=== PATIENT | male | born 1940 | race Caucasian/White ===

== ENCOUNTER 2016-03-06 07:08 | Inpatient (IN) | payer MEDICARE, OTHER ==
[2016-03-06] MEDS ORDERED: NS 0.9% 1000 ML* 1,000 ML IV ONE (08:25)
[2016-03-06] MEDS ORDERED: HYDROcodone/ACETAMIN 5-325 MG* 1 TAB PO ONE (08:26)
[2016-03-06 08:36] LABS: Hematocrit 24 % (42-52); Hemoglobin 7.3 g/dl (14.0-18.0); Mean Corpuscular HGB Conc 31 g/dl (31-36); Mean Corpuscular Hemoglobin 26 pg (27-31); Mean Corpuscular Volume 85 fL (80-94); Mean Platelet Volume 10 um3 (7.4-10.4); Red Blood Count 2.78 10^6/ul (4.0-5.4); Red Cell Distribution Width 20 % (10.5-15); White Blood Count 7.8 10^3/ul (3.5-10.8)
[2016-03-06 08:48] LABS: ALT 22 U/L (7-52); AST 16 U/L (13-39); Albumin 2.6 g/dL (3.2-5.2); Alkaline Phosphatase 113 U/L (34-104); Anion Gap 7 mmol/L (2-11); BUN/Creatinine Ratio 25.8 (8-20); Blood Urea Nitrogen 76 mg/dL (6-24); CO2 Carbon Dioxide 27 mmol/L (22-32); Chloride 110 mmol/L (101-111); EGFR African American 26.8 (>60); EGFR Non-African American 20.8 (>60); Globulin 4.7 g/dL (2-4); Glucose 484 mg/dL (70-100); Sodium 144 mmol/L (133-145); Total Protein 7.3 g/dL (6.4-8.9)
[2016-03-06 08:50] LABS: Troponin I 0.02 ng/mL (<0.04)
--- NOTE | 2016-03-06 09:16 | RAD ---
INDICATION: Loss of consciousness. History of right frontal mass COMPARISON: CT brain May 03, 2015 MRI brain March 29, 2014 TECHNIQUE: Noncontrast axial source images were acquired from the skull base to the vertex. FINDINGS: Ventricles/sulci: The ventricles and cisterns are unchanged in size and configuration for age. There is no hydrocephalus Brain parenchyma: There is large (4.7 x 4.6 cm) calcified right frontal mass with localized mass effect. This mass extends under the tentorium projecting to the left frontal lobe. This is likely a calcified meningioma. The appearance unchanged. There is no new focal parenchymal finding, evidence of intracranial mass, or intracranial mass effect. Intracranial hemorrhage:None. Extra-axial spaces: There are no abnormal extra axial fluid collections or evidence of extra-axial mass. Calvarium: There is no calvarial fracture or other calvarial abnormality. Scalp: There is no evidence of scalp or extracalvarial soft tissue abnormality. Paranasal sinuses/mastoid: The paranasal sinuses and mastoid air cells are clear. Other: None. IMPRESSION: STABLE CALCIFIED RIGHT FRONTAL MASS LIKELY A MENINGIOMA. NO ACUTE INTRACRANIAL FINDINGS
[2016-03-06] MEDS ORDERED: Insulin REGULAR(*) 1 UNITS UNIT SUBCUT ONE (09:35)
--- NOTE | 2016-03-06 09:40 | RAD ---
Indication: Back pain post fall. Comparison: November 23, 2015 CT. Technique: AP and lateral views thoracic spine. Report: Severe T9 and moderate T10 osteoporotic compression fractures are unchanged compared with the November 20, 2015 CT. No new thoracic spine fracture evident. Mildly increased thoracic kyphosis secondary to the T9 and T10 fractures. Unremarkable paraspinal soft tissue contours. Catheter from RIGHT chest port at level of superior vena cava RIGHT atrial junction. RIGHT upper quadrant surgical clips. IMPRESSION: Unchanged T9 and T10 osteoporotic compression fractures. No new thoracic spine fracture evident.
--- NOTE | 2016-03-06 09:43 | RAD ---
Indication: Back pain. Comparison: December 28, 2015 CT. Technique: AP, lateral, and oblique views lumbar sacral spine. Report: Normal alignment. Negative for vertebral body or posterior element fracture. Multilevel minimal vertebral endplate osteophytosis. No significant disc space narrowing. Mild facet joint osteoarthritis. No suspicious focal osseous lesions unremarkable paraspinal soft tissue contours. Innumerable RIGHT upper quadrant surgical clips reflecting previous Whipple procedure. IVC filter in place.. IMPRESSION: No traumatic injury of the lumbar sacral spine evident.
--- NOTE | 2016-03-06 09:46 | RAD ---
INDICATION: Fall COMPARISON: Chest x-ray May 31, 2015 TECHNIQUE: An AP portable supine view obtained at 0905 hours is submitted. FINDINGS: Bones/Soft Tissues: There are no acute bony findings. There is a right-sided Qtkabs-s-Eiqh catheter Cardiomediastinal: The cardiomediastinal silhouette is normal. Lungs: There are no infiltrates. The interstitium is mildly prominent which is likely a combination of supine technique and mild expiration. However, early interstitial changes are not excluded. Pleura: There are no pleural effusions. Other: None IMPRESSION: MILD DIFFUSE INTERSTITIAL PROMINENCE (SEE ABOVE).
[2016-03-06 10:28] LABS: Urine Bacteria Absent (Absent); Urine Bilirubin Negative (Negative); Urine Glucose 3+(>=500 mg/dL) (Negative); Urine Nitrite Negative (Negative)
[2016-03-06 10:30] LABS: Alcohol < 10 mg/dL (<10)
[2016-03-06 13:48] LABS: Magnesium 2.8 mg/dL (1.9-2.7)
[2016-03-06] MEDS ORDERED: NS 0.9% 1000 ML* 1,000 ML IV SCH (14:45)
--- NOTE | 2016-03-06 15:30 | ED ---
Brad Morel Soohyun, scribed for Keo Oreilly MD on 03/06/16 at 0828 . Back Pain - HPI Summary HPI Summary: This 76 y/o male presents to ED via ambulance for low back pain secondary to a fall out of bed this morning. Pt was found by , who called the ambulance. Pt reports LOC at time of initial evaluation. Temperature of 100.2 F is noted at time of triage. PMHx includes CAD, CO, pancreatic CA, and left total hip replacement on 02/28/2013. Pt appears disoriented at the time of initial evaluation, and currently denying his PMHx of pancreatic CA. - History of Current Complaint Chief Complaint: EDBackInjuryPain Stated Complaint: BACK PAIN Time Seen by Provider: 03/06/16 07:21 Hx Obtained From: Patient, Medical Records Onset/Duration: Sudden Onset Onset/Duration: Started Hours Ago Timing: Constant Back Pain Location: Is Discrete @ - low back pain Severity Initially: Moderate Severity Currently: Moderate Pain Intensity: 5 Pain Scale Used: 0-10 Numeric Character: Dull Aggravating Symptom(s): Movement Alleviating Symptom(s): Rest Associated Signs And Symptoms: Positive: Fever, Abdominal Pain - chronic secondary to pancreatic CA. - Allergies/Home Medications Allergies/Adverse Reactions: Allergies Allergy/AdvReac Type Severity Reaction Status Date / Time No Known Allergies Allergy Verified 03/06/16 07:46 Home Medications: Home Medications DOXYcycline CAP(*) [DOXYcycline 100MG CAP(*)] 100 mg PO BID 03/06/16 [History Confirmed 03/06/16] PMH/Surg Hx/FS Hx/Imm Hx Endocrine/Hematology History: Reports: Hx Anticoagulant Therapy, Hx Blood Transfusions, Hx Diabetes, Hx Anemia Denies: Hx Systemic Lupus Erythematosus Cardiovascular History: Reports: Hx Angina, Hx Cardiac Arrest, Hx Coronary Artery Disease, Hx Deep Vein Thrombosis, Hx Embolism, Hx Hypercholesterolemia, Hx Hypertension, Other Cardiovascular Problems/Disorders - PORT, PE Denies: Hx Congestive Heart Failure, Hx Pacemaker/ICD Respiratory History: Reports: Hx Pulmonary Embolism, Other Respiratory Problems/ Disorders - TB EXPOSURE W/NEG PPD Denies: Hx Asthma, Hx Chronic Obstructive Pulmonary Disease (COPD) GI History: Reports: Hx Diverticulosis, Hx Gastrointestinal Bleed, Hx Hiatal Hernia, Other GI Disorders - PANCREATIC CANCER, whipple operation Denies: Hx Gastroesophageal Reflux Disease, Hx Jaundice History: Reports: Other Problems/Disorders - kidney cyst Denies: Hx Dialysis, Hx Renal Disease Musculoskeletal History: Reports: Hx Back Problems, Other Musculoskeletal History - L hip fracture Denies: Hx Rheumatoid Arthritis Sensory History: Reports: Hx Contacts or Glasses - Glasses, Hx Vision Problem - near sited, Hx Hearing Problem - Hard at hearing Denies: Hx Cataracts, Hx Deafness, Hx Hearing Aid, Other Sensory Impairments Opthamlomology History: Reports: Hx Contacts or Glasses - Glasses, Hx Vision Problem - near sited Denies: Hx Cataracts, Other Sensory Impairments Neurological History: Denies: Hx Dementia, Hx Seizures Comment Only: Other Neuro Impairments/Disorders - Compressed vertebrae Psychiatric History: Denies: Hx Panic Disorder - Cancer History Cancer Type, Location and Year: Testicular 1970s, 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 Powerport, partial lt hip replacement Hx Anesthesia Reactions: No Infectious Disease History: No Infectious Disease History: Reports: Hx Shingles Denies: Hx Clostridium Difficile, Hx Hepatitis, Hx Human Immunodeficiency Virus (HIV), Hx of Known/Suspected MRSA, Hx Tuberculosis, Hx Known/Suspected VRE , Hx Known/Suspected VRSA, History Other Infectious Disease, Traveled Outside the [place] in Last 30 Days - Family History Known Family History: Positive: Cardiac Disease - brother -- valvular dz ~55 y/ o. - Social History Alcohol Use: None Alcohol Amount: 2 glasses wine with dinner Substance Use Type: Reports: None Hx Tobacco Use: Yes Smoking Status (MU): Former Smoker Type: Cigarettes Amount Used/How Often: pack a day Length of Time of Smoking/Using Tobacco: less then one year Have You Smoked in the Last Year: No Review of Systems Positive: Fever - temperature of 100.2 F is ntoed at triage Negative: Erythema Negative: Sore Throat Negative: Chest Pain Negative: Shortness Of Breath, Cough Positive: Abdominal Pain - chronic secondary to pancreatic CA. . Negative: Vomiting, Nausea Negative: dysuria, hematuria Positive: Other - back pain. Negative: Myalgia, Edema Negative: Rash Neurological: Other - negative for dizziness Negative: Anxious, Depressed All Other Systems Reviewed And Are Negative: Yes Physical Exam - Summary Physical Exam Summary: Constitutional: Well-developed, Well-nourished, Alert. (-) Distressed Skin: Warm, Dry HENT: Normocephalic; Atraumatic. Dry oral mucosa. Eyes: Conjunctiva normal Neck: Musculoskeletal ROM normal neck. (-) JVD, (-) Stridor, (-) Tracheal deviation Cardio: Rhythm regular, rate normal, Heart sounds normal; Intact distal pulses; The pedal pulses are 2+ and symmetric. Radial pulses are 2+ and symmetric. (-) Murmur Pulmonary/Chest wall: Effort normal. (-) Respiratory distress, (-) Wheezes, (-) Rales Abd: Soft, (+) Tenderness at epigastrium, (-) Distension, (-) Guarding, (-) Rebound Musculoskeletal: (-) Edema Lymph: (-) Cervical adenopathy Neuro: Alert, Disoriented to time. Denying diagnosis of pancreatic CA. Psych: Mood and affect Normal Triage Information Reviewed: Yes Vital Signs On Initial Exam: Initial Vitals Temp Pulse Resp BP Pulse Ox 100.2 F 105 19 113/48 95 03/06/16 07:12 03/06/16 07:12 03/06/16 07:12 03/06/16 07:12 03/06/16 07:12 Vital Signs Reviewed: Yes - Davy Coma Scale Coma Scale Total: 15 Diagnostics - Vital Signs Vital Signs Temp Pulse Resp BP Pulse Ox 03/06/16 07:32 95 19 95 03/06/16 07:30 113/48 03/06/16 07:12 100.2 F 105 19 113/48 95 - Laboratory Result Diagrams: 03/06/16 07:35 03/06/16 07:35 Lab Statement: Any lab studies that have been ordered have been reviewed, and results considered in the medical decision making process. - Radiology CXR Xray Interpretation: No Acute Changes - Bones/Soft Tissues: There are no acute bony findings. There is a right-sided Whyrrw-q-Xtiy catheter Cardiomediastinal : The cardiomediastinal silhouette is normal. Lungs: There are no infiltrates. The interstitium is mildly prominent which is likely a combination of supine technique and mild expiration. However, early interstitial changes are not excluded. Pleura: There are no pleural effusions. Other: None Radiology Interpretation Completed By: Radiologist L-spine Xray Interpretation: No Acute Changes Radiology Interpretation Completed By: Radiologist T-spine Xray Interpretation: No Acute Changes - Unchanged T9 and T10 osteoporotic compression fractures. No new thoracic spine fracture evident. Radiology Interpretation Completed By: Radiologist - CT Brain CT Interpretation: No Acute Changes - STABLE CALCIFIED RIGHT FRONTAL MASS LIKELY A MENINGIOMA. NO ACUTE INTRACRANIAL FINDINGS CT Interpretation Completed By: Radiologist - EKG 0807 Cardiac Rate: Tachycardia - 107 bpm EKG Rhythm: Sinus Tachycardia Ectopy: PVCs - occasional Back Pain Course/Dx - Course Assessment/Plan: This 76 y/o male presents to ED via ambulance after being found on floor earlier this morning by . Pt reports LOC. Pt is noted to be very poor historian at time of this initial evaluation during this visit. Pt denies being ever dx with pancreatic CA. Dr. Villa was consulted and reports that pt's CA is currently in remission. expresses desire for the pt to be admitted for observation. Dr. Beckman evaluated pt and agrees to admit the pt for further work up and observation. - Diagnoses Provider Diagnoses: Syncope - Provider Notifications Discussed Care of Patient With: Dr. Allen (Oncologist) at 0946 AM -- Pt's pancreatic CA is currently in remission. Also provides that Dr. Beckman usually admits this patient. 1000 AM Collateral obtained from Pt's . Pt had his port changed yesterday. She also reports that pt spilled TPN all over yesterday. Pt's syncope was not witnessed, but heard crash to see him on the floor of his bedroom. Josue Potts at 1013 AM Time Discussed With Above Provider: 09:46 Instructed by Provider To: Admit As Observation Discharge - Discharge Plan Condition: Stable Disposition: ADMITTED TO [facility] The documentation as recorded by the Brad bond Soohyun accurately reflects the service I personally performed and the decisions made by me, Keo Oreilly MD.
[2016-03-06] MEDS ORDERED: [UNRECOGNIZED DRUG - OTHER] TPN SCH ×13 (17:00)
[2016-03-06] MEDS ORDERED: TPN TPN SCH ×13 (17:00)
[2016-03-06] MEDS ORDERED: AMINO ACID INFUSION TPN SCH ×13 (17:00)
[2016-03-06] MEDS ORDERED: WATER TPN SCH ×13 (17:00)
[2016-03-06] MEDS ORDERED: DEXTROSE TPN SCH ×13 (17:00)
[2016-03-06] MEDS: [UNRECOGNIZED DRUG - REMARK] SUBCUT SCH (18:41)
--- NOTE | 2016-03-07 02:24 | HP ---
HISTORY AND PHYSICAL: DATE OF ADMISSION: 03/06/16 HISTORY OF PRESENT ILLNESS: Javan Larson is a 76-year-old man, presenting to the emergency room today via ambulance after having fallen at home. The patient has a complicated past medical history (see below). The patient had been quite weak last night, had been shaking in bed, although did not clearly have a fever. He got up to go to the bathroom around 2 o'clock. He seemed confused to his during the night. At about 5 o'clock, he got up and went to the bathroom again, this was despite the fact that he usually urinates in a urinal standing next to the bed. In the attempt to get to the bathroom, he fell down. He was unable to get up. His could not help him up and they called the ambulance and as he was willing to come to the hospital. In the emergency room, he was found to be confused and is being admitted at this time. During the night his TPN bag had gotten disconnected and was leaking on the floor so his discarded it and hooked him up to a new bag. PAST MEDICAL HISTORY: Significant for the following medical problems: 1. History of pancreatic cancer at the head of the pancreas for which he underwent a Whipple surgery in February 2012. He had a positive retroperitoneal margin. His course was complicated by an incidentally found right-sided pulmonary embolus for which he had an IVC filter placed. He was treated with gemcitabine, 5-FU/RT. He finished chemotherapy in April 2013. He has had a rising CA 19-9 since October 2013, with multiple restaging scans unable to demonstrate a mass. He has also had malabsorption and diarrhea. He has been unable to eat much and has been on TPN since last year. The idea of hospice has been raised with him, but he was accepting of his quality of life on TPN, which he would no longer be able to get if he were to be placed on hospice. He has understood, through conversation with his oncologist, Dr. Izzy Allen, that he would not be a candidate for chemotherapy because of his poor performance status. This was also discussed by Dr. Allen with his surgeon at [facility], Dr. Garay, who agreed with this assessment. 2. Pancytopenia. He previously has had a bone marrow biopsy, which suggested anemia of chronic disease/nutritional as most likely etiology. He has been on Aranesp, but this has not really helped. The decision was to stop this and to transfuse him as needed. He last had a transfusion a couple of weeks ago. 3. Diarrhea. He had previously been on octreotide. He has not wanted to take Lomotil or Imodium for this. 4. History of DVT, pulmonary emboli. He is on Coumadin for this. This has been followed by Dr. Allen, although recently they had not checked his INR because they thought he was not taking it. His INR is elevated in the emergency room today. 5. History of coronary artery disease, status post inferior AL in 1997. At that time, he woke up in the middle of the night with nausea, echo showed an EF of 49% with global hypokinesis. He never had any anginal chest pain. Stress test in [address] changes borderline for ischemia, with Myoview showing inferior infarction with a small amount of rosario-infarction ischemia extending into the septum, and an EF of 57%. 6. Type 2 diabetes mellitus. He had previously been on oral hypoglycemic agents and more recently has been on insulin via the TPN, with most recently 20 units in the bag. This had been increased from 10 units per bag because of rising blood sugars recently. Yesterday, he had a blood sugar of 519 on lab draw, but when rechecked with a fingerstick, it was 138. 7. History of hypertension, not a problem recently. 8. Diverticulosis. 9. History of perirectal abscess. 10. History of testicular cancer in 1978. 11. History of possible Lyme disease in 2007. 12. History of diverticular bleeding in 2011. 13. Chronic edema, for which he has recently been on diuretics. 14. Vitamin D deficiency. 15. Hypomagnesemia. 16. History of shingles in 2013. 17. Gastric ulcer in 2013. 18. Hearing loss. PAST SURGICAL HISTORY: Include: 1. Remote appendectomy. 2. Vasectomy. 3. Right orchiectomy for testicular cancer in 1978. 4. Whipple March 2012. 5. Insertion of powerport 05/10/2012 6. 03/03 hemiarthroplasty for hip fracture. ALLERGIES: None. CURRENT MEDICATIONS: 1. Warfarin 5 mg one-half to one tablet daily, as directed. 2. Furosemide 200 mg daily. 3. Zenpep 20,000-68,000-109,000 three to five capsules a.c. t.i.d., uses rarely because he is not eating much. 4. Vitamin D3 10,000 units daily. 5. Oxycodone p.r.n., although he is not taking this. 6. Omeprazole 40 mg daily. 7. Doxycycline 100 mg twice a day on the day he has needle in the port put in. 8. Acetaminophen 325 mg one to two tablets b.i.d. p.r.n. 9. Humulin R insulin 20 units daily in TPN. HABITS: Tobacco: None. ETOH in the past, not presently. Caffeine: ?. FAMILY HISTORY: Positive for heart disease, osteoporosis. 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 He is . He lives in his own home. He has three adult sons; one lives in [place], one in [place], one in [facility]. The son from [employer] [facility] is supposed to be coming to visit, he hopes, in a few weeks. He has brothers who have been visiting him recently. One is coming to visit him today from [place]. REVIEW OF SYSTEMS: Generally, he has been very weak. His appetite is poor. His weight has gone down as he is diuresed. He has been having fever and chills each Saturday or whatever day the needle is changed in his port for his TPN. The reason for this has been unclear. Skin: He has had wounds on his legs in the past related to edema, [facility]. HEENT: He is hard of hearing. Nodes: Negative. Heme: See above. Endocrine: See above. Respiratory: Negative. Cardiovascular: See above. GI: See above. : Negative. Musculoskeletal: He is complaining of back pain coming to the ER today. Neuro: Confusion related to the present illness. Psychiatric: He has had more confusion recently. PHYSICAL EXAMINATION GENERAL: He is an elderly white male, looking quite weak, very weak voice, lying on the stretcher, in no acute distress, resting with his eyes closed as I come into the room. VITAL SIGNS: On arrival to the emergency room, blood pressure 113/48, pulse 105 , respirations 19, temperature 100.2, O2 sat 95% on room air. As I am seeing him now, after a few hours, blood pressure 110/42, heart rate 105, respirations 18, O2 sat 96%. SKIN: Warm and dry. HEENT: Atraumatic, normocephalic. Full EOMs. Mouth shows dry mucous membranes. Teeth are in poor repair. Nodes without adenopathy. NECK: Supple. CHEST: Clear. Port with external needle right upper anterior chest. HEART: Normal S1, S2. No murmurs, gallops or rubs. ABDOMEN: Soft, nontender. No masses or organomegaly. Bowel sounds are present. EXTREMITIES: Show a lot of wrinkling of the skin. Trace edema. There are chronic stasis changes. There is quite dry skin. BACK: Nontender. NEURO: Shows no gross focal or lateralizing signs. He is not oriented to time , seems oriented to person and place. LABORATORY DATA: CBC: WBC 7.8, H and H 7.3/24, MCV 85, PLT 118,000. INR 4.12 , PTT 48.6. Chemistries: Sodium 144, potassium 4.0, chloride 110, CO2 of 27, BUN and creatinine of 76/2.95, glucose 484, magnesium 2.8, alk phos 113, albumin /globulin 2.6/4.7, with a total protein of 7.3, lactic acid 1.5. Urinalysis: Yellow, clear, specific gravity 1.012, pH 6. Dipstick positive for blood 1+, glucose 3+. Serum alcohol less than 10. Flu swab negative. Ammonia level 26. Troponin 0.12. Imaging: Brain CT shows a calcified meningioma, old, right frontal region. Lumbar spine x-ray shows no traumatic injury of the lumbosacral spine. Thoracic spine x- ray shows unchanged T9 and T10 osteoporotic compression fractures. Chest x-ray shows mild diffuse interstitial prominence. EKG shows sinus tachycardia with PVCs. IMPRESSION: The patient with fall at home. He is being admitted as his cannot care for him at this point. It is not clear whether or not he actually had loss of consciousness. He is not a candidate for a pacemaker. So, monitoring is not necessary. Further discussion will be had with the patient and his family regarding further treatment. It has to be decided whether he wants to continue with TPN or whether he wants to move on to hospice. A MOLST form was filled out. DVT prophylaxis is with Coumadin, which is being held at this point, as his INR is too high. I will be ordering a physical therapy evaluation. [id number]/[facility] #: [id number] BELKIS
[2016-03-07 05:47] LABS: Hematocrit 21 % (42-52); Mean Corpuscular HGB Conc 32 g/dl (31-36); Mean Corpuscular Hemoglobin 26 pg (27-31); Mean Corpuscular Volume 84 fL (80-94); Mean Platelet Volume 9 um3 (7.4-10.4); Red Blood Count 2.53 10^6/ul (4.0-5.4); Red Cell Distribution Width 20 % (10.5-15); White Blood Count 6.6 10^3/ul (3.5-10.8)
[2016-03-07 05:52] LABS: Comments Flag Yes; Hemoglobin 6.7 g/dl (14.0-18.0)
[2016-03-07] MEDS: [UNRECOGNIZED DRUG - REMARK] SUBCUT SCH ×4 (05:55→18:17)
[2016-03-07 05:56] LABS: Albumin 2.3 g/dL (3.2-5.2); BUN/Creatinine Ratio 25.7 (8-20); C Reactive Protein 69.22 mg/L (< 5.00); Calcium 9.3 mg/dL (8.6-10.3); EGFR African American 29.4 (>60); EGFR Non-African American 22.9 (>60); Globulin 4.3 g/dL (2-4); Magnesium 2.7 mg/dL (1.9-2.7); Potassium 3.8 mmol/L (3.5-5.0); Total Bilirubin 0.7 mg/dL (0.2-1.0); Total Protein 6.6 g/dL (6.4-8.9)
[2016-03-07] MEDS ORDERED: Influenza VAC *QUAD* 2016-17* 0.5 ML SYRINGE IM ONE (09:00)
[2016-03-07] MEDS: Omeprazole CAP* 20 MG PO SCH (09:14)
[2016-03-07] MEDS ORDERED: AMINO ACID INFUSION TPN SCH ×12 (17:00)
[2016-03-07] MEDS ORDERED: WATER TPN SCH ×12 (17:00)
[2016-03-07] MEDS ORDERED: DEXTROSE TPN SCH ×12 (17:00)
[2016-03-07] MEDS ORDERED: TPN TPN SCH ×12 (17:00)
[2016-03-07] MEDS ORDERED: [UNRECOGNIZED DRUG - OTHER] TPN SCH ×12 (17:00)
--- NOTE | 2016-03-07 18:35 | CONS ---
CONSULTATION REPORT: DATE OF CONSULT: 03/07/16 REQUESTING PHYSICIAN: Dr. Pushpa Beckman. CONSULTING SERVICE: Infectious Disease. REASON FOR CONSULT: Anorexia, weight loss, and intermittent fever. IMPRESSION: 1. Has been having episodes of fever and encephalopathy on approximately weekly basis after Mediport needle change and flush, does not have the same symptoms during daily flushes done by the patient's at home. The differential diagnosis includes port infection, allergic reaction to a substance being injected at the time of the needle change but not other times of the week, unrelated to the port. He has had increasing left hip pain in the setting of left hip prosthesis, though no apparent effusion or warmth on exam and minimal pain with log roll of the hip or with external rotation. 2. Pancreatic cancer with a history of Whipple's procedure, with presumed recurrence due to rising CA 19-9, though negative CT and PET and bone marrow. 3. Pancytopenia. 4. Acute pulmonary embolus. 5. Encephalopathy that comes on with fever, but slow to resolve on this admission. 6. History of deep venous thrombosis. 7. Coronary artery disease. 8. History of myocardial infarction. 9. Left hip arthroplasty. 10. Type 2 diabetes. RECOMMENDATIONS: Agree with blood cultures through the port. I would repeat them again tomorrow morning or at the time of him being febrile again and check a transthoracic echocardiogram. I think it is reasonable to hold on antibiotics at this point while continuing to work up. HISTORY OF PRESENT ILLNESS: This is a 76-year-old man with metastatic pancreatic cancer admitted with encephalopathy and fever. He cannot provide much history, which is obtained instead from discussion with the patient's , as well as Dr. Pushpa Beckman and review of the medical records. He has been treated over the last years for pancreatic cancer, has had a rising CA 19-9 with no new focus of disease detected. He has had inability to tolerate food due to history of radiation and has had long-term TPN through a right chest port. He has had over the last few weeks had decline in overall mental status, function. His relates that since about December every time when the visiting nurse comes for a needle exchange, he develops a few hours later rigors , chills, and decline in mental status. She checks temperatures; it is 101 to 102 at that time. She, on a daily basis, flushes the port with heparin and saline, which is presumably with the same substances flushed in on the Saturday when the nurse comes. She does not relate a history of altered mental status or fever after that time she does the flushes. She tried doxycycline before and after the needle change a few weeks ago and one time did not have a fever, the next week he did, so they have abandoned that effort. There have been a couple of weeks where there were not any reactions with infusion. It has been the same nurse each time that did the needle exchange and flush. He has not had difficulty with cough. He has had waxing and waning mental status. He has had some abdominal pain, which is diffuse and tends to come and go. He has had loose stools from [id number]. He has had left hip pain, which comes and goes , though really has been there since the time of the arthroplasty per the patient's brother. His thinks that it is a little bit worse over the last few weeks. PAST MEDICAL HISTORY: 1. Pancreatic cancer, status post Whipple procedure in 2012, treated with gemcitabine, 5-FU, and radiation therapy in 2013. He has had a rising CA 19-9 since then, PET and CT negative as well as bone marrow. 2. Malnutrition, on TPN. 3. History of pulmonary embolus, with an IVC filter. 4. Pancytopenia. 5. Coronary artery disease, status post MD. 6. Type 2 diabetes. 7. Hypertension. 8. Diverticulosis. 9. History of perirectal abscess. 10. History of testicular cancer, status post orchiectomy. 11. Vitamin D deficiency. 12. Hypomagnesemia. 13. History of shingles. 14. History of gastric ulcer. 15. Status post appendectomy. 16. Status post left hemiarthroplasty after a hip fracture. MEDICATIONS: 1. Hydrocodone. 2. Heparin flush through port. 3. Influenza vaccine. 4. Insulin lispro. 5. Insulin regular. 6. Omeprazole. ALLERGIES: No known drug allergies. FAMILY HISTORY: No recurrent infections or tuberculosis. SOCIAL HISTORY: Lives in [place] with his family. No travel. No sick contacts. No history of TB exposure. REVIEW OF SYSTEMS: All negative except as noted above. PHYSICAL EXAM: Vital Signs: Temperature is 37.5, heart rate 100, respiratory rate 18, blood pressure 120/54, O2 sat 97% on room air. In general, he awakens to voice. He is in no distress. Neurologically, he follows commands and answers some questions. HEENT: There is no conjunctival hemorrhage. Oropharynx without lesions. Neck: Neck is supple without nuchal rigidity. Lymph Nodes: There is no cervical, supraclavicular, inguinal, axillary, or epitrochlear lymphadenopathy. Heart has regular rate and rhythm without murmurs , rubs, or gallops. Lungs have decreased breath sounds at the bases bilaterally without wheezes or rales. Abdomen: Soft, nontender, nondistended without hepato-splenomegaly. Skin: There is no rash or splinter hemorrhages. Chest: There is a right chest port without surrounding erythema. Musculoskeletal: There is no spine tenderness to palpation. Left leg, there is negative log roll and minimal pain with internal and external rotation. There is no tenderness over the anterior hip and femur. LABORATORY DATA: White blood cell count 6.6, hemoglobin 6.7, platelets 102. Creatinine 2.7. Influenza PCR negative. Please see impressions and recommendations as outlined above. Thanks for asking me to see Mr. Larson in consultation. [id number]/[facility] #: [id number] BELKIS
[2016-03-07] MEDS ORDERED: Acetaminophen TAB* 325 MG PO PRN (20:27)
[2016-03-08] MEDS: [UNRECOGNIZED DRUG - REMARK] SUBCUT SCH ×4 (00:05→17:55)
[2016-03-08] MEDS: Omeprazole CAP* 20 MG PO SCH (09:04)
[2016-03-08 09:33] LABS: Hematocrit 22 % (42-52); Mean Corpuscular HGB Conc 32 g/dl (31-36); Mean Corpuscular Hemoglobin 27 pg (27-31); Mean Corpuscular Volume 84 fL (80-94); Mean Platelet Volume 9 um3 (7.4-10.4); Red Blood Count 2.57 10^6/ul (4.0-5.4); Red Cell Distribution Width 21 % (10.5-15); White Blood Count 8.3 10^3/ul (3.5-10.8)
[2016-03-08 09:38] LABS: Comments Flag Yes
[2016-03-08 09:39] LABS: Hemoglobin 6.9 g/dl (14.0-18.0)
[2016-03-08 09:51] LABS: BUN/Creatinine Ratio 22.9 (8-20); C Reactive Protein 84.54 mg/L (< 5.00); EGFR African American 23.7 (>60); EGFR Non-African American 18.4 (>60); Potassium 4.2 mmol/L (3.5-5.0)
[2016-03-08] MEDS ORDERED: NS 0.45% 1000 ML BAG* 1,000 ML IV ONE (10:30)
[2016-03-08] MEDS ORDERED: [UNRECOGNIZED DRUG - OTHER] TPN SCH ×12 (11:36)
[2016-03-08] MEDS ORDERED: AMINO ACID INFUSION TPN SCH ×12 (11:36)
[2016-03-08] MEDS ORDERED: WATER TPN SCH ×12 (11:36)
[2016-03-08] MEDS ORDERED: DEXTROSE TPN SCH ×12 (11:36)
[2016-03-08] MEDS ORDERED: TPN TPN SCH ×12 (11:36)
[2016-03-08] MEDS ORDERED: Warfarin TAB(*) 2 MG PO ONE (17:00)
[2016-03-08] MEDS: TPN TPN SCH ×12 (17:13)
[2016-03-09] MEDS: [UNRECOGNIZED DRUG - REMARK] SUBCUT SCH ×4 (00:38→17:38)
[2016-03-09 06:02] LABS: Hematocrit 21 % (42-52); Mean Corpuscular HGB Conc 31 g/dl (31-36); Mean Corpuscular Hemoglobin 26 pg (27-31); Mean Corpuscular Volume 84 fL (80-94); Mean Platelet Volume 10 um3 (7.4-10.4); Red Blood Count 2.46 10^6/ul (4.0-5.4); Red Cell Distribution Width 20 % (10.5-15); White Blood Count 6.5 10^3/ul (3.5-10.8)
[2016-03-09 06:12] LABS: Comments Flag Yes
[2016-03-09 06:13] LABS: Add Diff/Slide Review? Slide Review Added; Hemoglobin 6.5 g/dl (14.0-18.0)
[2016-03-09 06:17] LABS: Albumin 2.1 g/dL (3.2-5.2); BUN/Creatinine Ratio 21.9 (8-20); C Reactive Protein 97.29 mg/L (< 5.00); Calcium 8.7 mg/dL (8.6-10.3); EGFR African American 22.5 (>60); EGFR Non-African American 17.5 (>60); Globulin 4.5 g/dL (2-4); Potassium 4.4 mmol/L (3.5-5.0); Total Bilirubin 0.8 mg/dL (0.2-1.0); Total Protein 6.6 g/dL (6.4-8.9)
[2016-03-09] MEDS: Omeprazole CAP* 20 MG PO SCH (07:33)
[2016-03-09] MEDS ORDERED: Perflutren Prot Type A Micr (NF) 3 ML SDV IV ONE (09:04)
--- NOTE | 2016-03-09 10:21 | PN ---
Progress Note - Progress Note SOAP: Subjective: DOS: 03/09/16 CC: fever HPI: 76 year old man with pancreatic cancer, likely recurrent and chronic malnutrition on TPN via port, admitted with fever, rigor, mental status change. No pain or diarrhea. Fever this morning. Objective: [] Vital Signs Temp 39.4 C 03/09/16 10:14 Pulse 101 03/09/16 07:41 Resp 20 03/09/16 08:00 BP 111/48 03/09/16 07:41 Pulse Ox 95 03/09/16 07:41 Intake & Output 03/08/16 03/09/16 03/09/16 18:59 06:59 18:59 Intake Total 1225 416 Balance 1225 416 Weight 158 lb 11.2 oz Intake: IV Fluids 175 NS (0.45%) 175 IVPB 950 NS (0.45%) 950 TPN/PPN 416 Oral 100 0 Other: Estimated Void Large Small # Bowel Movements 0 Estimated Stool Amount Medium # Voids 2 1 Gen:no distress Neuro: awakens to voice, answers questions HEENT:PERRL, MMM Neck:supple Heart:RRR no murmur Lungs:CTA BL Abd:+BS NTND soft Skin: no rash chest:R chest port no erythema Sodium 147 mmol/L (133-145) H 03/09/16 05:50 Potassium 4.4 mmol/L (3.5-5.0) 03/09/16 05:50 BUN 75 mg/dL (6-24) H 03/09/16 05:50 Creatinine 3.43 mg/dL (0.67-1.17) H 03/09/16 05:50 Calcium 8.7 mg/dL (8.6-10.3) 03/09/16 05:50 Magnesium 2.7 mg/dL (1.9-2.7) 03/07/16 05:15 AST 35 U/L (13-39) 03/09/16 05:50 ALT 33 U/L (7-52) 03/09/16 05:50 Assessment: 1. fever , port infection high on differential despite negative BC, fungal or mycobacterial are possible 2. rising CRP 3. chronic malnutrition 4. pancreatic cancer 5. chronic kidney injury Plan: 1. de access port, place picc to stop infusing possible infection related toxin into blood stream. 2. emperic ceftriaxone Overall plan is to improve quality and quantity of life while awaiting son's return to [place]. Family does not want to pursue further diagnostic testing. Discussed with Dr Beckman
[2016-03-09] MEDS: Acetaminophen TAB* 325 MG PO PRN (10:27)
[2016-03-09] MEDS: cefTRIAXone* 1 GM in NS 0.9% 50 ML BAG IVPB SCH (10:33)
--- NOTE | 2016-03-09 16:28 | ECHO ---
Patient: IVANA HERNANDEZ [place] Rec#: [id number] : 1940 Date: 03/09/2016 Age: 76y Height: 167.6 cm / 66.0 in Weight: 59 kg / 130.0 lbs Sex: M BSA: 1.7 Room#: 414 Admit Date#: 03/06/2016 Type: Inpatient Referring: Pushpa Beckman MD Reading: Ye Garner DO Instructor Product Inspection: Brenden Briggs RDCS Instructor Product Inspection: Bridget Lindsey RN RDCS Transthoracic Echocardiogram Indication: Fever BP: 122/49 HR: 107 Rhythm: Tachycardia Findings History: HTN, DM, CAD, [place] 1997, pancreatic cancer, Whipple procedure, chemotherapy, possible Lyme disease Technical Comments: The study is technically limited due to poor acoustic windows. The study was technically limited due to the patient's inability to lay in the left lateral decubitus position. Left Ventricle: The left ventricle is not well visualized. There is normal left ventricular systolic function.Study is non-diagnostic to evaluate for LVEF or wall motion abnormalities Left Atrium: The left atrial chamber size is normal. Right Ventricle: The right ventricular global systolic function is normal.The right ventricular size is not well visualized. Right Atrium: The right atrium is not well visualized. Aortic Valve: The aortic valve structure is not well visualized. Mitral Valve: The mitral valve structure is not well visualized.There is no gross pathology on limited subcostal imaging. Tricuspid Valve: The tricuspid valve structure is not well visualized.although appears normal on available imaging The tricuspid valve leaflets are normal. There is no evidence of tricuspid valve regurgitation. Pulmonic Valve: The pulmonic valve structure is not well visualized. Pericardium: There is no significant pericardial effusion. Aorta: The aorta is not well visualized. Pulmonary Artery: The main pulmonary artery is not well visualized. Venous: The inferior vena cava is dilated. Conclusions The left ventricle is not well visualized. There is normal left ventricular systolic function. Study is non-diagnostic to evaluate for LVEF or wall motion abnormalities. Unable to use imaging enhancement agent due to IV access problems The right ventricular size is not well visualized. The right ventricular global systolic function is normal. The tricuspid valve appears to have normal structure and function on limited subcostal imaging The mitral valve structure is not well visualized. There is no gross pathology on limited subcostal imaging. The aortic and pulmonic valves are not well visualized. There is no significant pericardial effusion. Study is non-diagnostic to evaluate for indication (infective endocarditis). If clinically indicated would consider DELANEY. Compared to prior study from 06/2015, this study is now non-diagnostic. Measurements Name Value Normal Range MV E-wave Vmax 0.78 m/sec - MV deceleration time 249 msec - MV A-wave Vmax 0.92 m/sec - MV E:A ratio 0.8 ratio - Name Value Normal Range AV Vmax 1.4 m/sec - LVOT Vmax 0.88 m/sec - Name Value Normal Range IVC diameter 2.3 cm - Name Value Normal Range PV Vmax 1.4 m/sec -
[2016-03-09] MEDS ORDERED: Warfarin TAB(*) 2 MG PO ONE (17:00)
[2016-03-09] MEDS: TPN TPN SCH ×12 (17:21)
[2016-03-10] MEDS: [UNRECOGNIZED DRUG - REMARK] SUBCUT SCH ×4 (01:39→17:34)
[2016-03-10 06:45] LABS: BUN/Creatinine Ratio 21.8 (8-20); C Reactive Protein 139.61 mg/L (< 5.00); Calcium 8.7 mg/dL (8.6-10.3); EGFR African American 20.6 (>60); Potassium 4.7 mmol/L (3.5-5.0)
[2016-03-10] MEDS: Omeprazole CAP* 20 MG PO SCH (08:24)
[2016-03-10] MEDS: cefTRIAXone* 1 GM in NS 0.9% 50 ML BAG IVPB SCH (10:16)
[2016-03-10] MEDS ORDERED: Warfarin TAB(*) 2.5 MG PO ONE (17:00)
[2016-03-10] MEDS: TPN TPN SCH ×12 (17:06)
[2016-03-10] MEDS: Acetaminophen TAB* 325 MG PO PRN (20:37)
[2016-03-11] MEDS: [UNRECOGNIZED DRUG - REMARK] SUBCUT SCH ×5 (00:01→23:40)
[2016-03-11 05:15] LABS: Hematocrit 20 % (42-52); Mean Corpuscular HGB Conc 32 g/dl (31-36); Mean Corpuscular Hemoglobin 27 pg (27-31); Mean Corpuscular Volume 85 fL (80-94); Mean Platelet Volume 10 um3 (7.4-10.4); Red Blood Count 2.33 10^6/ul (4.0-5.4); Red Cell Distribution Width 20 % (10.5-15); White Blood Count 7.6 10^3/ul (3.5-10.8)
[2016-03-11 05:22] LABS: Comments Flag Yes
[2016-03-11 05:23] LABS: Hemoglobin 6.3 g/dl (14.0-18.0)
[2016-03-11 05:32] LABS: BUN/Creatinine Ratio 20.8 (8-20); EGFR African American 20.1 (>60); EGFR Non-African American 15.6 (>60); Potassium 4.2 mmol/L (3.5-5.0)
[2016-03-11 05:33] LABS: Albumin 2.1 g/dL (3.2-5.2); C Reactive Protein 157.9 mg/L (< 5.00); Calcium 8.7 mg/dL (8.6-10.3); Globulin 4.4 g/dL (2-4); Total Bilirubin 0.6 mg/dL (0.2-1.0); Total Protein 6.5 g/dL (6.4-8.9)
[2016-03-11] MEDS: Omeprazole CAP* 20 MG PO SCH (07:33)
[2016-03-11] MEDS: cefTRIAXone* 1 GM in NS 0.9% 50 ML BAG IVPB SCH (11:18)
[2016-03-11] MEDS ORDERED: Vancomycin per Pharmacy* NOTE FOLLOW UP PRN (11:49)
[2016-03-11] MEDS ORDERED: Vancomycin(*) 1,250 MG in NS 0.9% 250 ML* 250 ML IVPB ONE (12:00)
--- NOTE | 2016-03-11 14:29 | RAD ---
INDICATION: Cough. COMPARISON: Comparison is made with a prior chest x-ray study from March 06 2016. TECHNIQUE: A portable view of the chest was obtained. FINDINGS: There is a power port central venous catheter present on the right side. The catheter tip projects over the right atrium. The heart is within normal limits in size. The lungs are underinflated. There is a small infiltrate at the left lung base and a small left pleural effusion which appear new. IMPRESSION: NEW SMALL LEFT BASILAR INFILTRATE AND PLEURAL EFFUSION.
[2016-03-11] MEDS: SODIUM CHLORIDE TPN SCH ×12 (15:35)
[2016-03-11] MEDS: TPN TPN SCH ×12 (15:35)
[2016-03-11] MEDS: POTASSIUM CHLORIDE TPN TPN SCH ×12 (15:35)
[2016-03-11] MEDS: [UNRECOGNIZED DRUG - OTHER] TPN SCH ×12 (15:35)
[2016-03-11] MEDS ORDERED: [UNRECOGNIZED DRUG - OTHER] TPN SCH ×12 (17:00)
[2016-03-11] MEDS ORDERED: TPN TPN SCH ×12 (17:00)
[2016-03-11] MEDS ORDERED: AMINO ACID INFUSION TPN SCH ×12 (17:00)
[2016-03-11] MEDS ORDERED: WATER TPN SCH ×12 (17:00)
[2016-03-11] MEDS ORDERED: DEXTROSE TPN SCH ×12 (17:00)
[2016-03-11] MEDS ORDERED: Warfarin TAB(*) 2.5 MG PO ONE (17:00)
[2016-03-12] MEDS: [UNRECOGNIZED DRUG - REMARK] SUBCUT SCH ×4 (05:42→23:53)
[2016-03-12] MEDS ORDERED: Vancomycin Random Level* NOTE FOLLOW UP ONE (06:00)
[2016-03-12 06:16] LABS: Hematocrit 20 % (42-52); Mean Corpuscular HGB Conc 31 g/dl (31-36); Mean Corpuscular Hemoglobin 26 pg (27-31); Mean Corpuscular Volume 85 fL (80-94); Mean Platelet Volume 10 um3 (7.4-10.4); Red Blood Count 2.38 10^6/ul (4.0-5.4); Red Cell Distribution Width 20 % (10.5-15); White Blood Count 6.5 10^3/ul (3.5-10.8)
[2016-03-12 06:17] LABS: Comments Flag Yes
[2016-03-12 06:19] LABS: Hemoglobin 6.2 g/dl (14.0-18.0)
[2016-03-12 06:20] LABS: ALT 30 U/L (7-52); AST 27 U/L (13-39); Albumin 2.1 g/dL (3.2-5.2); Alkaline Phosphatase 83 U/L (34-104); Anion Gap 4 mmol/L (2-11); BUN/Creatinine Ratio 21.2 (8-20); Blood Urea Nitrogen 77 mg/dL (6-24); C Reactive Protein 154.37 mg/L (< 5.00); CO2 Carbon Dioxide 24 mmol/L (22-32); Calcium 8.6 mg/dL (8.6-10.3); Chloride 119 mmol/L (101-111); EGFR African American 21.1 (>60); EGFR Non-African American 16.4 (>60); Globulin 4.4 g/dL (2-4); Glucose 258 mg/dL (70-100); Potassium 4.3 mmol/L (3.5-5.0); Sodium 147 mmol/L (133-145); Total Protein 6.5 g/dL (6.4-8.9)
[2016-03-12 06:26] LABS: Prealbumin < 3 mg/dL (18-38); Vancomycin Random 11.9 mcg/mL
--- NOTE | 2016-03-12 08:21 | RAD ---
CPT II Codes: 6045F INDICATION: Long-term IV access needed in a patient with a suspected infected Mediport and a history of pancreatic cancer. COMPARISON: None. FLUOROSCOPY TIME: 22 seconds TECHNIQUE: The benefits and risks of the procedure were explained to the patient. The patient consented to the exam. A timeout was performed before beginning the procedure. Ultrasound of the left arm demonstrates a patent lateral brachial vein that was selected for PICC line access. The basilic vein, the preferred vein for PICC lines, was extremely diminutive and does not exhibit active color flow. Sterile precautions were employed, including standard sterile prep and drape, utilization of sterile gloves, gown, cap and mask. The skin and subcutaneous tissue overlying the vein was anesthetized with 1% lidocaine injected locally. Utilizing sonographic guidance the vein was accessed with a 21-gauge needle. An ultrasound image was recorded. A guidewire was advanced into the superior vena cava under fluoroscopic guidance. The peel-away sheath was advanced over the wire into the lumen of the vein. A 5-Urdu double lumen PICC catheter was placed over a guidewire. The tip of the catheter was in the cavoatrial junction confirmed with fluoroscopy. The catheter was secured in place with an adhesive device and the percutaneous site was dressed with sterile gauze. The patient tolerated the procedure with no complications. IMPRESSION: PLACEMENT OF A 5-LATVIAN DOUBLE-LUMEN PICC CATHETER WITHOUT COMPLICATION IN A LEFT UPPER EXTREMITY BRACHIAL VEIN.
[2016-03-12] MEDS: Omeprazole CAP* 20 MG PO SCH (08:35)
[2016-03-12] MEDS: Vancomycin(*) 1,250 MG in NS 0.9% 250 ML* 250 ML IVPB SCH (10:13)
--- NOTE | 2016-03-12 11:50 | PN ---
Progress Note - Progress Note SOAP: Subjective: DOS: 03/12/16 CC: fever HPI: 76 year old man with pancreatic cancer, likely recurrent and chronic malnutrition on TPN via port, admitted with fever, rigor, mental status change. No pain or rash. Chronic diarrhea, unchanged. No fevers since port de- accessed and abx started. Denies cough or shortness of breath. Objective: [] Vital Signs Temp 36.8 C 03/12/16 07:11 Pulse 100 03/12/16 07:11 Resp 18 03/12/16 09:44 BP 110/54 03/12/16 07:11 Pulse Ox 96 03/12/16 07:11 Intake & Output 03/11/16 03/12/16 03/12/16 18:59 06:59 18:59 Intake Total 1560 1787 40 Balance 1560 1787 40 Intake: TPN/PPN 1430 1017 Oral 130 770 40 Other: Estimated Void Medium Large # Bowel Movements 1 0 1 Estimated Stool Amount Large Medium Large # Voids 1 1 Gen:no distress Neuro: awakens to voice, answers questions HEENT:PERRL, MMM Neck:supple Heart:RRR no murmur Lungs:CTA BL Abd:+BS NTND soft Skin: no rash chest:R chest port no erythema Assessment: 1. fever , port infection fungal or mycobacterial are possible 2. pneumonia 3. elevated CRP 4. chronic malnutrition 5. pancreatic cancer 6. chronic kidney disease 7. encephalopathy, present on admission Plan: 1. continue to avoid port access, continue ceftriaxone day 4/7, vancomycin day 2 , goal tr 10-15; overall plan for short course abx, continue to use picc instead of port.
[2016-03-12] MEDS: cefTRIAXone* 1 GM in NS 0.9% 50 ML BAG IVPB SCH (12:07)
[2016-03-12] MEDS: [UNRECOGNIZED DRUG - OTHER] TPN SCH ×12 (16:08)
[2016-03-12] MEDS: POTASSIUM CHLORIDE TPN TPN SCH ×12 (16:08)
[2016-03-12] MEDS: SODIUM CHLORIDE TPN SCH ×12 (16:08)
[2016-03-12] MEDS: TPN TPN SCH ×12 (16:08)
[2016-03-12] MEDS ORDERED: Warfarin TAB(*) 2 MG PO ONE (17:00)
[2016-03-12] MEDS ORDERED: Insulin LISPRO* 1 UNITS UNIT SUBCUT ONE (17:00)
[2016-03-13 05:19] LABS: Hematocrit 25 % (42-52); Hemoglobin 7.9 g/dl (14.0-18.0); Mean Corpuscular HGB Conc 32 g/dl (31-36); Mean Corpuscular Hemoglobin 27 pg (27-31); Mean Corpuscular Volume 84 fL (80-94); Mean Platelet Volume 10 um3 (7.4-10.4); Red Blood Count 2.96 10^6/ul (4.0-5.4); Red Cell Distribution Width 19 % (10.5-15); White Blood Count 8.4 10^3/ul (3.5-10.8)
[2016-03-13 05:29] LABS: Comments Flag Yes
[2016-03-13 05:37] LABS: C Reactive Protein 142.37 mg/L (< 5.00); Calcium 8.8 mg/dL (8.6-10.3); EGFR African American 23.9 (>60); EGFR Non-African American 18.6 (>60); Potassium 4.2 mmol/L (3.5-5.0)
[2016-03-13] MEDS: [UNRECOGNIZED DRUG - REMARK] SUBCUT SCH ×3 (05:46→18:12)
[2016-03-13] MEDS: Omeprazole CAP* 20 MG PO SCH (07:57)
[2016-03-13] MEDS: Vancomycin(*) 1,250 MG in NS 0.9% 250 ML* 250 ML IVPB SCH (09:27)
[2016-03-13] MEDS: cefTRIAXone* 1 GM in NS 0.9% 50 ML BAG IVPB SCH (11:27)
[2016-03-13] MEDS: TPN TPN SCH ×12 (17:01)
[2016-03-13] MEDS: [UNRECOGNIZED DRUG - OTHER] TPN SCH ×12 (17:01)
[2016-03-13] MEDS: POTASSIUM CHLORIDE TPN TPN SCH ×12 (17:01)
[2016-03-13] MEDS: SODIUM CHLORIDE TPN SCH ×12 (17:01)
[2016-03-14] MEDS: [UNRECOGNIZED DRUG - REMARK] SUBCUT SCH ×5 (00:01→23:59)
[2016-03-14 05:39] LABS: Hematocrit 25 % (42-52); Hemoglobin 7.8 g/dl (14.0-18.0); Mean Corpuscular HGB Conc 32 g/dl (31-36); Mean Corpuscular Hemoglobin 27 pg (27-31); Mean Corpuscular Volume 84 fL (80-94); Mean Platelet Volume 9 um3 (7.4-10.4); Red Blood Count 2.92 10^6/ul (4.0-5.4); Red Cell Distribution Width 20 % (10.5-15); White Blood Count 7.3 10^3/ul (3.5-10.8)
[2016-03-14 05:54] LABS: Ammonia 40 mol/L (16-53)
[2016-03-14 05:55] LABS: Albumin 2.1 g/dL (3.2-5.2); C Reactive Protein 137.37 mg/L (< 5.00); Calcium 8.7 mg/dL (8.6-10.3); EGFR African American 25.9 (>60); EGFR Non-African American 20.1 (>60); Globulin 4.4 g/dL (2-4); Potassium 3.9 mmol/L (3.5-5.0); Total Bilirubin 0.7 mg/dL (0.2-1.0); Total Protein 6.5 g/dL (6.4-8.9)
[2016-03-14 06:00] LABS: B Type Natriuretic Peptide 137 pg/mL
[2016-03-14] MEDS ORDERED: Vancomycin Trough Check NOTE FOLLOW UP ONE (10:00)
[2016-03-14] MEDS: Omeprazole CAP* 20 MG PO SCH (10:45)
[2016-03-14] MEDS: cefTRIAXone* 1 GM in NS 0.9% 50 ML BAG IVPB SCH (11:15)
[2016-03-14] MEDS: SODIUM CHLORIDE TPN SCH ×12 (17:25)
[2016-03-14] MEDS: TPN TPN SCH ×12 (17:25)
[2016-03-14] MEDS: POTASSIUM CHLORIDE TPN TPN SCH ×12 (17:25)
[2016-03-14] MEDS: [UNRECOGNIZED DRUG - OTHER] TPN SCH ×12 (17:25)
[2016-03-14] MEDS: Vancomycin(*) 1,250 MG in NS 0.9% 250 ML* 250 ML IVPB SCH (18:30)
[2016-03-15] MEDS ORDERED: Vancomycin Random Level* NOTE FOLLOW UP ONE (06:00)
[2016-03-15] MEDS: [UNRECOGNIZED DRUG - REMARK] SUBCUT SCH ×4 (06:45→23:55)
[2016-03-15 07:05] LABS: Hematocrit 24 % (42-52); Hemoglobin 7.7 g/dl (14.0-18.0); Mean Corpuscular HGB Conc 32 g/dl (31-36); Mean Corpuscular Hemoglobin 27 pg (27-31); Mean Corpuscular Volume 84 fL (80-94); Mean Platelet Volume 10 um3 (7.4-10.4); Red Blood Count 2.87 10^6/ul (4.0-5.4); Red Cell Distribution Width 19 % (10.5-15); White Blood Count 7.7 10^3/ul (3.5-10.8)
[2016-03-15 07:30] LABS: ALT 54 U/L (7-52); AST 63 U/L (13-39); Alkaline Phosphatase 95 U/L (34-104); Anion Gap 6 mmol/L (2-11); BUN/Creatinine Ratio 26.4 (8-20); Blood Urea Nitrogen 75 mg/dL (6-24); C Reactive Protein 115.17 mg/L (< 5.00); CO2 Carbon Dioxide 22 mmol/L (22-32); Calcium 8.6 mg/dL (8.6-10.3); Chloride 119 mmol/L (101-111); EGFR Non-African American 21.8 (>60); Globulin 4.5 g/dL (2-4); Glucose 137 mg/dL (70-100); Magnesium 1.5 mg/dL (1.9-2.7); Phosphorus 3.2 mg/dL (2.5-5.0); Potassium 4.2 mmol/L (3.5-5.0); Sodium 147 mmol/L (133-145); Total Protein 6.5 g/dL (6.4-8.9)
[2016-03-15 07:31] LABS: Prealbumin < 3 mg/dL (18-38); Vancomycin Random 19.9 mcg/mL
[2016-03-15] MEDS: Omeprazole CAP* 20 MG PO SCH (07:34)
[2016-03-15] MEDS: cefTRIAXone* 1 GM in NS 0.9% 50 ML BAG IVPB SCH (10:27)
[2016-03-15] MEDS ORDERED: Vancomycin(*) 1,000 MG in NS 0.9% 250 ML* 250 ML IVPB ONE (12:00)
[2016-03-15] MEDS: Magnesium Sulfate 2 GM IV* 2 GM/50 ML BAG IV SCH ×2 (13:34→18:20)
[2016-03-15] MEDS ORDERED: Lidocaine 1% INJ* 10 MG/ML 30 ML SDV ONE (16:43)
[2016-03-15] MEDS ORDERED: Bupivacaine 0.5% W/EPI SDV* 30 ML VIAL ONE (16:43)
[2016-03-15] MEDS ORDERED: AMINO ACID INFUSION TPN SCH ×13 (17:00)
[2016-03-15] MEDS ORDERED: TPN TPN SCH ×13 (17:00)
[2016-03-15] MEDS ORDERED: DEXTROSE TPN SCH ×13 (17:00)
[2016-03-15] MEDS ORDERED: Warfarin TAB(*) 2 MG PO ONE (17:00)
[2016-03-15] MEDS ORDERED: [UNRECOGNIZED DRUG - OTHER] TPN SCH ×13 (17:00)
[2016-03-15] MEDS ORDERED: WATER TPN SCH ×13 (17:00)
[2016-03-16] MEDS ORDERED: Vancomycin Random Level* NOTE FOLLOW UP ONE (06:00)
[2016-03-16] MEDS: [UNRECOGNIZED DRUG - REMARK] SUBCUT SCH ×2 (06:22→11:49)
[2016-03-16 07:02] LABS: Hematocrit 25 % (42-52); Hemoglobin 7.8 g/dl (14.0-18.0); Mean Corpuscular HGB Conc 32 g/dl (31-36); Mean Corpuscular Hemoglobin 27 pg (27-31); Mean Corpuscular Volume 84 fL (80-94); Mean Platelet Volume 9 um3 (7.4-10.4); Red Blood Count 2.91 10^6/ul (4.0-5.4); Red Cell Distribution Width 19 % (10.5-15)
[2016-03-16 07:13] LABS: BUN/Creatinine Ratio 27.4 (8-20); C Reactive Protein 99.94 mg/L (< 5.00); Calcium 8.8 mg/dL (8.6-10.3); EGFR African American 30.6 (>60); EGFR Non-African American 23.8 (>60); Globulin 4.7 g/dL (2-4); Magnesium 2.5 mg/dL (1.9-2.7); Potassium 4.4 mmol/L (3.5-5.0); Total Bilirubin 0.7 mg/dL (0.2-1.0); Total Protein 6.7 g/dL (6.4-8.9)
[2016-03-16] MEDS: Omeprazole CAP* 20 MG PO SCH (07:22)
[2016-03-16 07:29] VITALS: BP 108/52
[2016-03-16 08:43] LABS: Vancomycin Random 24.2 mcg/mL
--- NOTE | 2016-03-16 10:22 | OP ---
DATE OF OPERATION: 03/15/16 - ROOM #41 DATE OF : 40 SURGEON: Jose Medellin MD GENERAL COUNSEL: None. ANESTHESIOLOGIST: None. PRE-OP DIAGNOSIS: Infected Chemo-Port. POST-OP DIAGNOSIS: Infected Chemo-Port. OPERATIVE PROCEDURE: Removal of right subclavian port. DESCRIPTION OF PROCEDURE: The patient is in the local procedure room. The right chest was prepped with antiseptic, draped in a sterile fashion. Local infiltrative anesthesia 1% plain lidocaine is administered and the previous incision was reentered. The port is dissected free and removed in its entirety. The distal 5 cm of the port is cut off and placed in a sterile container and sent to laboratory for analysis. The operative site was closed up using 4-0 Vicryl in layers followed by a sterile dressing. He tolerated the procedure well, is brought to recovery in good condition. No complications. No drains. Pathologic specimen as mentioned above. Sponge, instrument counts correct. Estimated blood loss less than 10 mL. CC: Izzy Allen MD; Pushpa Beckman MD; Claude Liu MD* [id number]/[facility] #: [id number] MTDD
[2016-03-16] MEDS: cefTRIAXone* 1 GM in NS 0.9% 50 ML BAG IVPB SCH (11:50)
--- NOTE | 2016-09-04 06:54 | DS ---
DISCHARGE SUMMARY: DATE OF ADMISSION: 03/06/16 DATE OF DISCHARGE: 03/16/16 DISCHARGE DIAGNOSES: 1. Status post fall. 2. Weakness. 3. Malnutrition. 4. History of pancreatic cancer. 5. Chronic diarrhea. 6. Pancytopenia. 7. History of deep venous thrombosis. pulmonary emboli. 8. Probable port infection. 9. Type 2 diabetes mellitus. 10. Status post left hip arthroplasty. 11. History of coronary artery disease, status post myocardial infarction. 12. Encephalopathy related to fever. 13. Chronic kidney disease stage 4. 14. Calcified meningioma on CT. HISTORY: Javan Larson is a 76-year-old man admitted with encephalopathy and fever after falling at home. Please see the dictated admission note for details of the present illness, past medical history, family history, social and personal history, review of systems, and physical examination. DIAGNOSTIC STUDIES/LABORATORY DATA: CBC on admission: WBC 7.8, H and H 7.3/24 , MCV 85, and PLT 118K. Subsequent platelet count went down as low as 77 on , was up to 111 on 03/16/16. Hemoglobin went down to a low of 6.2 on 03/12, went up to 7.8 on 03/16/16. INRs ranged from 1.87 on 03/16/16 to 3.31 on 03/13/16. Chemistries on admission: Sodium 144, potassium 4.0, chloride 110, CO2 27, BUN and creatinine 27/2.95, glucose 484, calcium 10, magnesium 2.8, alk phos 113, albumin 2.6, globulin 4.7. Procalcitonin was 0.4. 25-hydroxyvitamin D was 32.1. Prealbumin was low at less than 3. BNP was 241 on 03/07/16, 137 on 03/14/16. CRP started at 69.22 on 03/07/16, went up to a high of 157.90 on 03/11/16, was down to 99.94 on 03/16/16. Troponin I was 0.02 on admission. Lactic acid was 1.5 on admission. Chemistries prior to discharge: Sodium 147, potassium 4.4, chloride 119, CO2 23, BUN and creatinine 72/2.63, glucose 108. Urinalysis showed 1+ blood, 3+ glucose. Vancomycin levels were measured (see EMR). Serum alcohol was less than 10. Flu A and B were negative. Mycobacterial culture of the catheter tip was no growth. Blood cultures were no growth. Catheter tip culture was no growth. Fungal and acid-fast bacilli cultures of the tip, no growth. Blood was O positive. He received 2 units of packed cells on 03/12/16. Imaging: Thoracic spine x-ray was unchanged, showed old T10 osteoporotic compression fracture. Chest x-ray, 03/06/16, showed mild diffuse interstitial prominence. Lumbar spine x-ray, 03/06/16, showed no traumatic injury. Brain CT, 03/06/16, showed stable calcified right frontal mass, likely meningioma. PICC line insertion imaging, 03/09/16, impression: Placement of a 5-Persian double- lumen PICC catheter without complication in the left upper extremity brachial vein. Chest x-ray, 03/11/16, showed new small left basilar infiltrate and pleural effusion. Pathology report showed PICC line. EKG on 03/06/16 showed sinus tachycardia, ventricular bigeminy, borderline low voltage. Echocardiogram, 03/08/16, showed normal LV function, poor study, nondiagnostic valves not well visualized. OP report, 03/15/16, infected chemo port removed. Consultation, 03/07/16, Infectious Disease, Dr. Liu felt that the patient had intermittent fevers. He agreed with the blood culture through the port. He recommended checking the echocardiogram, which was done (see above). He agreed with holding antibiotics as the patient was worked up. Followup consultation on 03/09/16, Dr. Liu agreed with deaccessing the port, placing a PICC and giving empiric ceftriaxone and subsequently vancomycin. HOSPITAL COURSE: The patient was initially admitted. It was felt that his blood sugars were high and so he got extra insulin. He was DNR, had a MOLST form. He was continued on the TPN which he had been getting at home. With recurrent fevers related to needle changes at home, it was felt that he should be seen by Infectious Disease. This was done (see above). PT evaluation was ordered for his weakness. His anticoagulation was continued. His blood sugars came down. It was discussed whether or not he should get antibiotics and he and his wanted antibiotics. This was done with ceftriaxone and subsequently vancomycin. A PICC line was inserted. He subsequently had his port removed. His fevers went down. He also had a cough when he ate. It was felt that he was aspirating. He initially did not want a blood transfusion, but then agreed to it. He received 2 units. His platelet counts initially went down, but then came up. He had urinary incontinence felt to be related to his elevated blood glucose levels. He had some volume overload. He was hypomagnesemic and this was treated. His renal insufficiency did improve a bit , but he does have chronic renal insufficiency. At the time of discharge, he was feeling better. He was upset that he had not been getting physical therapy. It was felt that his diabetes was better controlled. His CRP was coming down. It was felt that his infection had been treated, had come from the port. At the time of discharge, he is being discharged on TPN as before. Activity as tolerated. MEDICATIONS: 1. Warfarin as directed, 5 mg half a tablet daily or as directed. 2. Furosemide as needed for swelling, 200 mg. 3. Omeprazole 40 mg daily. 4. Pancreatic enzymes 3 to 5 with food. 5. Acetaminophen 325 mg 2 as needed for pain. 6. Vitamin D3 5000 units 2 per day. FOLLOWUP: He is to follow up with me as needed. I can make home visits. He will also be getting correction. He should have a CBC, CRP, CMP, INR on 03/19/16, or as ordered. [id number]/[facility] #: [id number] MTDD
== END 2016-03-16 13:15 | disposition home health service (06) | DRG 314 ==
LOC: ED 07:08 → MED 10:55
PROVIDERS: ADMIT Internal Medicine Geriatric Medicine; ATTEND Internal Medicine Geriatric Medicine
PROC: 3E0436Z Introduction of Nutritional Substance into Central Vein, Percutaneous Approach (ICD-10-PCS; 2016-03-06)
PROC: 3E0234Z Introduction of Serum, Toxoid and Vaccine into Muscle, Percutaneous Approach (ICD-10-PCS; 2016-03-07)
PROC: 02HV33Z Insertion of Infusion Device into Superior Vena Cava, Percutaneous Approach (ICD-10-PCS; 2016-03-09)
PROC: B548ZZA Ultrasonography of Superior Vena Cava, Guidance (ICD-10-PCS; 2016-03-09)
PROC: 30233N1 Transfusion of Nonautologous Red Blood Cells into Peripheral Vein, Percutaneous Approach (ICD-10-PCS; principal; 2016-03-12)
PROC: 0JPT0XZ Removal of Tunneled Vascular Access Device from Trunk Subcutaneous Tissue and Fascia, Open Approach (ICD-10-PCS; 2016-03-15)
DX: T80.212A Local infection due to central venous catheter, initial encounter (principal); E43 Unspecified severe protein-calorie malnutrition; J18.9 Pneumonia, unspecified organism; G93.40 Encephalopathy, unspecified; D61.818 Other pancytopenia; C25.9 Malignant neoplasm of pancreas, unspecified; W19.XXXA Unspecified fall, initial encounter; I25.10 Atherosclerotic heart disease of native coronary artery without angina pectoris; K57.90 Diverticulosis of intestine, part unspecified, without perforation or abscess without bleeding; R60.9 Edema, unspecified; H91.90 Unspecified hearing loss, unspecified ear; E55.9 Vitamin D deficiency, unspecified; Z96.642 Presence of left artificial hip joint; E78.00 Pure hypercholesterolemia, unspecified; Z66 Do not resuscitate; R53.1 Weakness; D63.8 Anemia in other chronic diseases classified elsewhere; N28.9 Disorder of kidney and ureter, unspecified; D69.6 Thrombocytopenia, unspecified; R32 Unspecified urinary incontinence; N18.9 Chronic kidney disease, unspecified; I12.9 Hypertensive chronic kidney disease with stage 1 through stage 4 chronic kidney disease, or unspecified chronic kidney disease; K52.9 Noninfective gastroenteritis and colitis, unspecified; E11.22 Type 2 diabetes mellitus with diabetic chronic kidney disease; Z86.718 Personal history of other venous thrombosis and embolism; Z86.711 Personal history of pulmonary embolism; Z85.47 Personal history of malignant neoplasm of testis; I25.2 Old myocardial infarction; Z98.52 Vasectomy status; Z82.49 Family history of ischemic heart disease and other diseases of the circulatory system; Z82.62 Family history of osteoporosis; Y92.003 Bedroom of unspecified non-institutional (private) residence as the place of occurrence of the external cause; Z92.21 Personal history of antineoplastic chemotherapy; Z92.3 Personal history of irradiation; Z95.828 Presence of other vascular implants and grafts; Z87.891 Personal history of nicotine dependence; Z68.25 Body mass index [BMI] 25.0-25.9, adult; Z23 Encounter for immunization
CPT/HCPCS: 36415; 36569; 70450; 71010; 72070; 72110; 76937; 77001; 80048; 80053; 80202; 80320; 81003; 81015; 82140; 82306; 82947; 83605; 83735; 83880; 84100; 84134; 84145; 84484; 85025; 85027; 85610; 85730; 86140; 86850; 86900; 86901; 86922; 87015; 87040; 87071; 87102; 87116; 87206; 87502; 88300; 90686; 93005; 93306; A9270-GY; C1751; G0480; J0696; J1642; J3370; J3475; J3480; P9040; Q9956

== ENCOUNTER 2016-06-28 20:34 | Emergency (ER) | payer MEDICARE, OTHER ==
[2016-06-28] MEDS ORDERED: Famotidine IV* 10 MG/ML 2 ML (20 mg) IV ONE (21:26)
[2016-06-28] MEDS ORDERED: NS 0.9% 1000 ML* 1,000 ML IV ONE (21:26)
[2016-06-28 21:50] LABS: Hematocrit 25 % (42-52); Hemoglobin 7.9 g/dl (14.0-18.0); Mean Corpuscular HGB Conc 32 g/dl (31-36); Mean Corpuscular Hemoglobin 30 pg (27-31); Mean Corpuscular Volume 94 fL (80-94); Mean Platelet Volume 12 um3 (7.4-10.4); Red Blood Count 2.66 10^6/ul (4.0-5.4); Red Cell Distribution Width 16 % (10.5-15); White Blood Count 13.7 10^3/ul (3.5-10.8)
[2016-06-28 22:06] LABS: ALT 49 U/L (7-52); AST 47 U/L (13-39); Albumin 2.3 g/dL (3.2-5.2); Alkaline Phosphatase 287 U/L (34-104); Anion Gap 7 mmol/L (2-11); C Reactive Protein 71.61 mg/L (< 5.00); CO2 Carbon Dioxide 26 mmol/L (22-32); Calcium 8.9 mg/dL (8.6-10.3); Chloride 109 mmol/L (101-111); EGFR African American 33.4 (>60); Globulin 5.1 g/dL (2-4); Glucose 318 mg/dL (70-100); Lipase < 10 U/L (11.0-82.0); Magnesium 3.2 mg/dL (1.9-2.7); Potassium 4.2 mmol/L (3.5-5.0); Sodium 142 mmol/L (133-145); Total Protein 7.4 g/dL (6.4-8.9)
--- NOTE | 2016-06-28 22:29 | ED ---
Oscar Morel Michael, scribed for Jose Dewitt MD on 06/28/16 at 2137 . GI/ HPI - HPI Summary HPI Summary: 76 y/o male was BIBA to the ED presenting with intermittent episodes of black tarry stool for the past day. The pt's was bedside and she reports that he had 3 episodes of the tarry stool. He denies any pain. The patient has a hx of pancreatic CA, and his baseline is light brown watery stools. - History of Current Complaint Chief Complaint: EDGeneral Time Seen by Provider: 06/28/16 21:21 Stated Complaint: WEAKNESS/BLACK STOOL-CA PT Hx Obtained From: Patient, Family/[place] Monitoring Technician, EMS, Medical Records Onset/Duration: Started Days Ago, Still Present Timing: Intermittent Severity: Moderate Current Severity: Moderate Pain Intensity: 0 Location of Pain: None Associated Signs and Symptoms: Positive: Black Tarry Stool - Additional Pertinent History Primary Care Physician: [id number] - Allergy/Home Medications Allergies/Adverse Reactions: Allergies Allergy/AdvReac Type Severity Reaction Status Date / Time No Known Allergies Allergy Verified 03/06/16 07:46 PMH/Surg Hx/FS Hx/Imm Hx Endocrine/Hematology History: Reports: Hx Anticoagulant Therapy, Hx Blood Transfusions, Hx Diabetes, Hx Anemia Denies: Hx Systemic Lupus Erythematosus Cardiovascular History: Reports: Hx Angina, Hx Cardiac Arrest, Hx Coronary Artery Disease, Hx Deep Vein Thrombosis, Hx Embolism, Hx Hypercholesterolemia, Hx Hypertension, Other Cardiovascular Problems/Disorders - CAD, DVT, PE Denies: Hx Congestive Heart Failure, Hx Pacemaker/ICD Respiratory History: Reports: Hx Pulmonary Embolism, Other Respiratory Problems/ Disorders - TB EXPOSURE W/NEG PPD Denies: Hx Asthma, Hx Chronic Obstructive Pulmonary Disease (COPD) GI History: Reports: Hx Diverticulosis, Hx Gastrointestinal Bleed, Hx Hiatal Hernia, Other GI Disorders - PANCREATIC CANCER, whipple operation Denies: Hx Gastroesophageal Reflux Disease, Hx Jaundice History: Reports: Other Problems/Disorders - kidney cyst Denies: Hx Dialysis, Hx Renal Disease Musculoskeletal History: Reports: Hx Back Problems, Other Musculoskeletal History - L hip fracture Denies: Hx Rheumatoid Arthritis Sensory History: Reports: Hx Contacts or Glasses - Glasses, Hx Vision Problem - near sited, Hx Hearing Problem - Hard at hearing Denies: Hx Cataracts, Hx Deafness, Hx Hearing Aid, Other Sensory Impairments Opthamlomology History: Reports: Hx Contacts or Glasses - Glasses, Hx Vision Problem - near sited Denies: Hx Cataracts, Other Sensory Impairments Neurological History: Reports: Other Neuro Impairments/Disorders - Compressed vertebrae Denies: Hx Dementia, Hx Seizures Psychiatric History: Denies: Hx Panic Disorder - Cancer History Cancer Type, Location and Year: Testicular 1970s, 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 Powerport, partial lt hip replacement Hx Anesthesia Reactions: No Infectious Disease History: No Infectious Disease History: Reports: Hx Shingles Denies: Hx Clostridium Difficile, Hx Hepatitis, Hx Human Immunodeficiency Virus (HIV), Hx of Known/Suspected MRSA, Hx Tuberculosis, Hx Known/Suspected VRE , Hx Known/Suspected VRSA, History Other Infectious Disease, Traveled Outside the [place] in Last 30 Days - Family History Known Family History: Positive: Cardiac Disease - brother -- valvular dz ~55 y/ o. - Social History Occupation: Retired Lives: With Family Alcohol Use: None Alcohol Amount: 2 glasses wine with dinner Substance Use Type: Reports: None Hx Tobacco Use: Yes Smoking Status (MU): Former Smoker Type: Cigarettes Amount Used/How Often: pack a day Length of Time of Smoking/Using Tobacco: less then one year Have You Smoked in the Last Year: No Review of Systems Negative: Fever Positive: Other - melena All Other Systems Reviewed And Are Negative: Yes Physical Exam Triage Information Reviewed: Yes Vital Signs On Initial Exam: Initial Vitals Temp Pulse Resp BP Pulse Ox 98.7 F 96 20 109/50 96 06/28/16 21:06 06/28/16 21:06 06/28/16 21:06 06/28/16 21:06 06/28/16 21:06 Vital Signs Reviewed: Yes Appearance: Positive: No Pain Distress, Thin, Cachectic Skin: Positive: Warm, Dry, Pale Head/Face: Positive: Normal Head/Face Inspection Eyes: Positive: DIANE ENT: Positive: Hearing grossly normal Neck: Positive: Supple Respiratory/Lung Sounds: Positive: Clear to Auscultation, Breath Sounds Present Cardiovascular: Positive: RRR Abdomen Description: Positive: Nontender, Soft Bowel Sounds: Positive: Present Musculoskeletal: Positive: Strength/ROM Intact Diagnostics - Vital Signs Vital Signs Temp Pulse Resp BP Pulse Ox 06/28/16 21:08 98.7 F 96 20 109/50 96 06/28/16 21:06 98.7 F 96 20 109/50 96 - Laboratory Lab Results: Lab Results 06/28/16 06/28/16 06/28/16 Range/Units 21:40 21:40 21:40 WBC 13.7 H (3.5-10.8) 10^3/ul RBC 2.66 L (4.0-5.4) 10^6/ul Hgb 7.9 L (14.0-18.0) g/dl Hct 25 L (42-52) % MCV 94 (80-94) fL MCH 30 (27-31) pg MCHC 32 (31-36) g/dl RDW 16 H (10.5-15) % Plt Count 149 L (150-450) 10^3/ul MPV 12 H (7.4-10.4) um3 Neut % (Auto) 88.5 H (38-83) % Lymph % (Auto) 3.5 L (25-47) % Crook % (Auto) 6.3 (1-9) % Eos % (Auto) 1.3 (0-6) % Baso % (Auto) 0.4 (0-2) % Absolute Neuts (auto) 12.1 H (1.5-7.7) 10^3/ul Absolute Lymphs (auto) 0.5 L (1.0-4.8) 10^3/ul Absolute Monos (auto) 0.9 H (0-0.8) 10^3/ul Absolute Eos (auto) 0.2 (0-0.6) 10^3/ul Absolute Basos (auto) 0.1 (0-0.2) 10^3/ul Absolute Nucleated RBC 0 10^3/ul Nucleated RBC % 0 INR (Anticoag Therapy) 2.25 H (0.89-1.11) Sodium 142 (133-145) mmol/L Potassium 4.2 (3.5-5.0) mmol/L Chloride 109 (101-111) mmol/L Carbon Dioxide 26 (22-32) mmol/L Anion Gap 7 (2-11) mmol/L BUN Pending Creatinine 2.44 H (0.67-1.17) mg/dL Est GFR ( Amer) 33.4 (>60) Est GFR (Non-Af Amer) 26.0 (>60) BUN/Creatinine Ratio Pending Glucose 318 H (70-100) mg/dL Lactic Acid (0.5-2.0) mmol/L Calcium 8.9 (8.6-10.3) mg/dL Magnesium 3.2 H (1.9-2.7) mg/dL Total Bilirubin 2.30 H (0.2-1.0) mg/dL AST 47 H (13-39) U/L ALT 49 (7-52) U/L Alkaline Phosphatase 287 H (34-104) U/L C-Reactive Protein 71.61 H (< 5.00) mg/L Total Protein 7.4 (6.4-8.9) g/dL Albumin 2.3 L (3.2-5.2) g/dL Globulin 5.1 H (2-4) g/dL Albumin/Globulin Ratio 0.5 L (1-3) Lipase < 10 L (11.0-82.0) U/L 06/28/16 Range/Units 21:40 WBC (3.5-10.8) 10^3/ul RBC (4.0-5.4) 10^6/ul Hgb (14.0-18.0) g/dl Hct (42-52) % MCV (80-94) fL MCH (27-31) pg MCHC (31-36) g/dl RDW (10.5-15) % Plt Count (150-450) 10^3/ul MPV (7.4-10.4) um3 Neut % (Auto) (38-83) % Lymph % (Auto) (25-47) % Crook % (Auto) (1-9) % Eos % (Auto) (0-6) % Baso % (Auto) (0-2) % Absolute Neuts (auto) (1.5-7.7) 10^3/ul Absolute Lymphs (auto) (1.0-4.8) 10^3/ul Absolute Monos (auto) (0-0.8) 10^3/ul Absolute Eos (auto) (0-0.6) 10^3/ul Absolute Basos (auto) (0-0.2) 10^3/ul Absolute Nucleated RBC 10^3/ul Nucleated RBC % INR (Anticoag Therapy) (0.89-1.11) Sodium (133-145) mmol/L Potassium (3.5-5.0) mmol/L Chloride (101-111) mmol/L Carbon Dioxide (22-32) mmol/L Anion Gap (2-11) mmol/L BUN Creatinine (0.67-1.17) mg/dL Est GFR ( Amer) (>60) Est GFR (Non-Af Amer) (>60) BUN/Creatinine Ratio Glucose (70-100) mg/dL Lactic Acid 1.1 (0.5-2.0) mmol/L Calcium (8.6-10.3) mg/dL Magnesium (1.9-2.7) mg/dL Total Bilirubin (0.2-1.0) mg/dL AST (13-39) U/L ALT (7-52) U/L Alkaline Phosphatase (34-104) U/L C-Reactive Protein (< 5.00) mg/L Total Protein (6.4-8.9) g/dL Albumin (3.2-5.2) g/dL Globulin (2-4) g/dL Albumin/Globulin Ratio (1-3) Lipase (11.0-82.0) U/L Result Diagrams: 06/28/16 21:40 06/28/16 21:40 Lab Statement: Any lab studies that have been ordered have been reviewed, and results considered in the medical decision making process. Re-Evaluation - Re-Evaluation First Eval Comment: hgb at baseline, no stool in ed, requesting to take pt home, will d/c f/u pcp, return to ed for problems GIGU Course/Dx - Diagnoses Provider Diagnoses: Pancreatic cancer, Weakness, Abdominal pain Discharge - Discharge Plan Condition: Stable Disposition: HOME Patient Education Materials: Weakness (ED), Acute Abdominal Pain (ED) Referrals: Pushpa Beckman MD [Primary Care Provider] - Additional Instructions: Please follow up with Dr. Beckman within the next 2-3 days. The documentation as recorded by the scribeOscar Michael accurately reflects the service I personally performed and the decisions made by me, Jose Dewitt MD.
[2016-06-28 22:32] LABS: BUN/Creatinine Ratio 79.1 (8-20); Blood Urea Nitrogen 193 mg/dL (6-24)
[2016-06-28 23:51] VITALS: BP 116/55
== END 2016-06-29 00:52 | disposition home or self-care (01) ==
LOC: ED 20:34
DX: C25.9 Malignant neoplasm of pancreas, unspecified (principal); R53.1 Weakness; R10.9 Unspecified abdominal pain
CPT/HCPCS: 36415; 80053; 83605; 83690; 83735; 85025; 85610; 86140; 86850; 86900; 86901; 96365; 99284